=== PATIENT | female | born 1955 | race Caucasian/White ===

== ENCOUNTER 2017-09-16 22:52 | Emergency (ER) | payer OTHER ==
--- NOTE | 2017-09-16 23:00 | EDPHY ---
H & P Stated Complaint: r side neck pain headache Time Seen by Provider: 09/16/17 23:00 HPI/ROS: HPI CHIEF COMPLAINT: Neck pain times 10 days. HISTORY OF PRESENT ILLNESS: Patient is 62-year-old female, she is otherwise healthy, she is a nurse here and works in the OR, she presents emergency room with right lateral neck pain. Patient states that for the past 10 days she has had ongoing right neck pain. She states she was in [place] and she was carrying a very heavy Beach bag she remembers this Beach bag pulling very hard on her right shoulder causing some neck discomfort. Since that event 10 days ago she has had ongoing right lateral neck pain. She has had multiple massage his also she had a chiropractor neck manipulation done without any great relief infection states it got worse. She decided come the emergency room tonight due to ongoing right lateral neck pain as she cannot turn her head to the right without great pain. The pain does not go down her arm. She has no arm weakness she denies any numbness or tingling she denies ecological risk assessor strength weakness. Her main complaint is right lateral neck pain. Describes it as 10/10 when she moves her head to the right. Past Medical History: Denies medical history Past Surgical History: Denies significant surgical history Social History: Denies daily use of drugs alcohol tobacco. Works in the OR here. Family History: Noncontributory ROS REVIEW OF SYSTEMS: A comprehensive 10 point review of systems is otherwise negative aside from elements mentioned in the history of present illness. Exam Constitutional nontoxic appearing, vital signs stable triage nursing summary reviewed, vital signs reviewed, awake/alert. Eyes normal conjunctivae and sclera, EOMI, PERRLA. HENT neck exam: No carotid bruit on exam, she does have full range of motion of her head when she turns her head however when she turns her head to the right she has right lateral neck pain. Also has tender palpation, there is no swelling noted, no midline cervical spine pain. Additionally she has normal ecological risk assessor strength, normal sensation, x-ray nerve intact, full range of motion of the right arm. moist mucus membranes, no epistaxis, neck supple/ no meningismus , no raccoon eyes. Respiratory clear to auscultation bilaterally, normal breath sounds, no respiratory distress, no wheezing. Cardiovascular rate normal, regular rhythm, no murmur, no edema, distal pulses normal. Gastrointestinal soft, non-tender, no rebound, no guarding, normal bowel sounds, no distension, no pulsatile mass. Genitourinary no CVA tenderness. Musculoskeletal no midline vertebral tenderness, full range of motion, no calf swelling, no tenderness of extremities, no meningismus, good pulses, neurovascularly intact. Skin pink, warm, & dry, no rash, skin atraumatic. Neurologic awake, alert and oriented x 3, AAOx3, moves all 4 extremities equally, motor intact, sensory intact, CN II-XII intact, normal cerebellar, normal vision, normal speech. Psychiatric normal mood/affect. Heme/Lymph/Immune no lymphadenopathy. Differential Diagnosis: Includes but is not limited to in a particular order cervical strain, disc herniation, nerve root compression, annular tear, fracture , neuropathy, musculoskeletal strain, vertebral artery dissection Medical Decision Making: Plan for this patient CT scan cervical spine without contrast for trauma, CT angiogram neck to rule out carotid dissection. Re- evaluate. Re-evaluation: CT cervical spine without contrast shows severe her foraminal stenosis on the right C3-C4 C5 and osteophytes. Please see full dictation for details of the report by . CT angiogram of the neck: With IV contrast shows no dissection artery. Please see full dictation for details. Dr. Rod. [id number]: Discussed the case in detail with the patient about her CT results. I do recommend she has follow-up with Neurosurgery and additionally recommend following up with primary care doctor as well. Here in emergency room she got minimal relief from the Dilaudid and Valium. She has agreed for IV Toradol, IV Decadron and another dose of Dilaudid to see if this improves her pain. Source: Patient - Personal History Current Tetanus/Diphtheria Vaccine: Yes Current Tetanus Diphtheria and Acellular Pertussis (TDAP): Yes - Medical/Surgical History Hx Asthma: No Hx Chronic Respiratory Disease: No Hx Diabetes: No Hx Cardiac Disease: Yes Hx Renal Disease: No Hx Cirrhosis: No Hx Alcoholism: No Hx HIV/AIDS: No Hx Splenectomy or Spleen Trauma: No Other PMH: c-sec x3 - Social History Smoking Status: Never smoked Constitutional: Initial Vital Signs Temperature (C) 36.5 C 09/16/17 22:54 Heart Rate 77 09/16/17 22:54 Respiratory Rate 18 09/16/17 22:54 Blood Pressure 161/95 H 07/01/18 22:54 O2 Sat (%) 97 09/16/17 22:54 O2 Delivery Mode Room Air Allergies/Adverse Reactions: Sulfa (Sulfonamide Antibiotics) Allergy (Verified 05/03/13 12:00) RASH AND JAW "LOCKS UP" Home Medications: Medication Instructions Recorded ESTROGEN,CON/M-PROGEST ACET 04/16/11 [PREMPRO 0.3 MG-1.5 MG TABLET] Diazepam [Valium 5 MG (*)] 5 mg PO BID PRN #15 tab 09/17/17 Ibuprofen [Motrin (*)] 800 mg PO Q6-8PRN #20 tab 09/17/17 predniSONE 60 mg PO DAILY #15 tab 09/17/17 Medical Decision Making - Diagnostics Imaging Results: Imaging Impressions Cervical Spine CT 09/16/17 23:13 Impression: Normal CT angiography of the neck and of the [place]. Measurement of carotid stenosis is based on the residual internal carotid diameter with [place] Symptomatic Carotid Endarterectomy Trial (NASCET) based stenosis levels. Contrast Enhanced CT Scan of the Cervical Spine: Imaging of the cervical spine was obtained from the craniocervical junction to the T5 level, reformatted at 1.00 and 0.60 mm increments, and reviewed in parasagittal and paracoronal planes , at a variety of window and level settings. The DFOV is 20.3 cm. Findings: The cervical vertebral body heights and posterior alignments are maintained. There is a slight head tilt and trace cervical-thoracic junction curvature and also slight straightening of the normal cervical lordosis, features suggestive of underlying muscle spasm. The osseous trabecular pattern is normal, with no lytic or blastic lesion. There is no compression fracture. There is trace degenerative anterolisthesis at C2-C3. There is no facet malalignment, and the interspinous distances are appropriate. There is no unusual prevertebral or epidural enhancement. The lateral masses of C1 and C2 are aligned, and the base of the tip of the dens are normal. There is some mild osseous hypertrophy along the superior portion of the predental space. The craniocervical junction appears normal. The visualized upper cervical spine appears normal. There is no paravertebral or epidural hematoma. The prevertebral soft tissues are notable for a stable dominant heterogeneous- appearing 12 x 13 x 16 mm right thyroid lobe nodule, which previously measured 12 x 12 x 16 mm on 06/18/15, at which time it was biopsied. The lung apices are notable for a thin-walled 11 x 12 mm left apical pneumatocele. The visualized superior mediastinal structures are unremarkable. At the C2-C3 level, there is no focal disk herniation, canal stenosis, or neural foraminal impingement. At the C3-C4 level, there is the aforementioned trace degenerative anterolisthesis. There is severe right-sided facet hypertrophy with uncovertebral degenerative spondylosis, resulting in severe right neural foraminal stenosis. There is some very mild broad-based circumferential disk bulging, without significant central canal stenosis. The left neural foramen is patent. At the C4-C5 level, there is severe asymmetric right-sided facet hypertrophy with some uncovertebral degenerative spondylosis resulting in a mild-to- moderate degree of right neural foraminal stenosis. There is some minimal broad- based circumferential disk bulging. The left neural foramen is relatively patent. At the C5-C6 level, there is mild degenerative disk space narrowing. Ventral traction osteophytes are seen. There is some mild uncovertebral degenerative spondylosis, resulting in mild right neural foraminal narrowing. There is mild bilateral facet hypertrophy. There is no focal disk herniation or central canal stenosis. At the C6-C7 level, there is no central canal or neural foraminal stenosis. At the C7-T1 level, there is no central canal or neural foraminal stenosis. Impression: 1. Secondary indicator of underlying cervical muscle spasm. 2. Severe asymmetric right-sided facet degenerative change at C3-C4 and C4-C5 with some accompanying uncovertebral degenerative spondylosis resulting in severe right C3-C4, and [id number] right C4-C5 neural foraminal stenosis. 3. Stable appearance of a 12 x 13 x 16 mm right thyroid lobe nodule, which was previously biopsied with reportedly benign features in June 2015. Findings were discussed with Jorge Pereira MD at 0:29, on 09/17/2017. Neck CTA 09/16/17 23:13 Impression: Normal CT angiography of the neck and of the [place]. Measurement of carotid stenosis is based on the residual internal carotid diameter with [place] Symptomatic Carotid Endarterectomy Trial (NASCET) based stenosis levels. Contrast Enhanced CT Scan of the Cervical Spine: Imaging of the cervical spine was obtained from the craniocervical junction to the T5 level, reformatted at 1.00 and 0.60 mm increments, and reviewed in parasagittal and paracoronal planes , at a variety of window and level settings. The DFOV is 20.3 cm. Findings: The cervical vertebral body heights and posterior alignments are maintained. There is a slight head tilt and trace cervical-thoracic junction curvature and also slight straightening of the normal cervical lordosis, features suggestive of underlying muscle spasm. The osseous trabecular pattern is normal, with no lytic or blastic lesion. There is no compression fracture. There is trace degenerative anterolisthesis at C2-C3. There is no facet malalignment, and the interspinous distances are appropriate. There is no unusual prevertebral or epidural enhancement. The lateral masses of C1 and C2 are aligned, and the base of the tip of the dens are normal. There is some mild osseous hypertrophy along the superior portion of the predental space. The craniocervical junction appears normal. The visualized upper cervical spine appears normal. There is no paravertebral or epidural hematoma. The prevertebral soft tissues are notable for a stable dominant heterogeneous- appearing 12 x 13 x 16 mm right thyroid lobe nodule, which previously measured 12 x 12 x 16 mm on 06/18/15, at which time it was biopsied. The lung apices are notable for a thin-walled 11 x 12 mm left apical pneumatocele. The visualized superior mediastinal structures are unremarkable. At the C2-C3 level, there is no focal disk herniation, canal stenosis, or neural foraminal impingement. At the C3-C4 level, there is the aforementioned trace degenerative anterolisthesis. There is severe right-sided facet hypertrophy with uncovertebral degenerative spondylosis, resulting in severe right neural foraminal stenosis. There is some very mild broad-based circumferential disk bulging, without significant central canal stenosis. The left neural foramen is patent. At the C4-C5 level, there is severe asymmetric right-sided facet hypertrophy with some uncovertebral degenerative spondylosis resulting in a mild-to- moderate degree of right neural foraminal stenosis. There is some minimal broad- based circumferential disk bulging. The left neural foramen is relatively patent. At the C5-C6 level, there is mild degenerative disk space narrowing. Ventral traction osteophytes are seen. There is some mild uncovertebral degenerative spondylosis, resulting in mild right neural foraminal narrowing. There is mild bilateral facet hypertrophy. There is no focal disk herniation or central canal stenosis. At the C6-C7 level, there is no central canal or neural foraminal stenosis. At the C7-T1 level, there is no central canal or neural foraminal stenosis. Impression: 1. Secondary indicator of underlying cervical muscle spasm. 2. Severe asymmetric right-sided facet degenerative change at C3-C4 and C4-C5 with some accompanying uncovertebral degenerative spondylosis resulting in severe right C3-C4, and [id number] right C4-C5 neural foraminal stenosis. 3. Stable appearance of a 12 x 13 x 16 mm right thyroid lobe nodule, which was previously biopsied with reportedly benign features in June 2015. Findings were discussed with Jorge Pereira MD at 0:29, on 09/17/2017. - Data Points Laboratory Results: Laboratory Results 09/16/17 23:10 09/16/17 23:10 09/16/17 09/16/17 09/16/17 23:19 23:10 23:10 WBC 15.45 10^3/uL H 10^3/uL (3.80-9.50) RBC 4.60 10^6/uL 10^6/uL (4.18-5.33) Hgb 14.6 g/dL g/dL (12.6-16.3) POC Hgb 15.3 gm/dL gm/dL (12.6-16.3) Hct 42.9 % % (38.0-47.0) POC Hct 45 % % (38-47) MCV 93.3 fL fL (81.5-99.8) MCH 31.7 pg pg (27.9-34.1) MCHC 34.0 g/dL g/dL (32.4-36.7) RDW 12.3 % % (11.5-15.2) Plt Count 254 10^3/uL 10^3/uL (150-400) MPV 10.3 fL fL (8.7-11.7) Neut % (Auto) 71.8 % % (39.3-74.2) Lymph % (Auto) 19.0 % % (15.0-45.0) [place] % (Auto) 6.8 % % (4.5-13.0) Eos % (Auto) 1.4 % % (0.6-7.6) Baso % (Auto) 0.5 % % (0.3-1.7) Nucleat RBC Rel Count 0.0 % % (0.0-0.2) Absolute Neuts (auto) 11.12 10^3/uL H 10^3/uL (1.70-6.50) Absolute Lymphs (auto) 2.93 10^3/uL 10^3/uL (1.00-3.00) Absolute Monos (auto) 1.05 10^3/uL H 10^3/uL (0.30-0.80) Absolute Eos (auto) 0.21 10^3/uL 10^3/uL (0.03-0.40) Absolute Basos (auto) 0.07 10^3/uL 10^3/uL (0.02-0.10) Absolute Nucleated RBC 0.00 10^3/uL 10^3/uL (0-0.01) Immature Gran % 0.5 % % (0.0-1.1) Immature Gran # 0.07 10^3/uL 10^3/uL (0.00-0.10) POC Sodium 142 mEq/L mEq/L (135-145) Sodium 142 mEq/L mEq/L (135-145) POC Potassium 3.4 mEq/L mEq/L (3.3-5.0) Potassium 3.6 mEq/L mEq/L (3.3-5.0) POC Chloride 106 mEq/L mEq/L (97-110) Chloride 106 mEq/L mEq/L (97-110) Carbon Dioxide 25 mEq/l mEq/l (22-31) Anion Gap 11 mEq/L mEq/L (8-16) POC BUN 18 mg/dL mg/dL (7-23) BUN 18 mg/dL mg/dL (7-23) Creatinine 1.0 mg/dL mg/dL (0.6-1.0) POC Creatinine 1.0 mg/dL mg/dL (0.6-1.0) Estimated GFR 56 Glucose 88 mg/dL mg/dL (70-100) POC Glucose 92 mg/dL mg/dL (70-100) Calcium 10.3 mg/dL mg/dL (8.5-10.4) Medications Given: Discontinued Medications Diazepam (Valium) 2.5 mg IVP EDNOW ONE Stop: 09/16/17 23:15 Last Admin: 09/16/17 23:23 Dose: 2.5 mg Hydromorphone HCl (Dilaudid) 0.5 mg IVP EDNOW ONE Stop: 09/16/17 23:15 Last Admin: 09/16/17 23:22 Dose: 0.5 mg Sodium Chloride (Ns) 1,000 mls @ 0 mls/hr IV ONCE ONE PRN Reason: Wide Open Stop: 09/16/17 23:15 Last Admin: 09/16/17 23:22 Dose: 1,000 mls Ketorolac Tromethamine (Toradol) 15 mg IVP ONCE ONE Stop: 09/16/17 23:15 Last Admin: 09/16/17 23:39 Dose: Not Given Point of Care Test Results: Chemistry 09/16/17 23:19 POC Sodium 142 mEq/L mEq/L (135-145) POC Potassium 3.4 mEq/L mEq/L (3.3-5.0) POC Chloride 106 mEq/L mEq/L (97-110) POC BUN 18 mg/dL mg/dL (7-23) POC Creatinine 1.0 mg/dL mg/dL (0.6-1.0) POC Glucose 92 mg/dL mg/dL (70-100) ISTAT H&H 09/16/17 23:19 POC Hgb 15.3 gm/dL gm/dL (12.6-16.3) POC Hct 45 % % (38-47) Departure - Departure Disposition: Home, Routine, Self-Care Clinical Impression: Neck pain Condition: Good Instructions: Cervical Strain (ED), Neck Pain (ED) Additional Instructions: 1. Follow up with your primary care doctor 2. Follow up with Neurosurgery 3. Return emergency room if there is worsening pain numbness or tingling or weakness of her arm. Referrals: Kourtney Brown MD [Primary Care Provider] - As per Instructions Maciel Pepe MD [Medical Doctor] - As per Instructions Prescriptions: Diazepam [Valium 5 MG (*)] 5 mg PO BID PRN #15 tab PRN Reason: Spasms Ibuprofen [Motrin (*)] 800 mg PO Q6-8PRN #20 tab predniSONE 60 mg PO DAILY #15 tab
[2017-09-16] MEDS ORDERED: DIAZEPAM 5 MG/ML 1 ML SYR IVP ONE (23:14)
[2017-09-16] MEDS ORDERED: HYDROmorphONE/DILAUDID 2 MG/ML INJ IVP ONE (23:14)
[2017-09-16] MEDS ORDERED: KETOROLAC 15 MG/1 ML SDV IVP ONE (23:14)
[2017-09-16] MEDS ORDERED: NS 1,000 ML IV ONE (23:14)
[2017-09-16] MEDS ORDERED: IOPAMIDOL (ISOVUE 370) 100 ML BTL IV ONE (23:19)
[2017-09-16] MEDS ORDERED: HYDROmorphONE/DILAUDID 1 MG/ML INJ ONE (23:19)
[2017-09-16 23:20] LABS: PLATELET COUNT 254 10^3/uL (150-400)
[2017-09-17] MEDS ORDERED: KETOROLAC 15 MG/1 ML SDV IVP ONE (01:03)
[2017-09-17] MEDS ORDERED: DEXAMETHASONE 10 MG/ML VIAL IVP ONE (01:03)
[2017-09-17] MEDS ORDERED: HYDROmorphONE/DILAUDID 2 MG/ML INJ IVP ONE (01:03)
[2017-09-17] MEDS ORDERED: HYDROmorphONE/DILAUDID 1 MG/ML INJ ONE (01:06)
[2017-09-17] MEDS ORDERED: NS 1,000 ML IV ONE (02:13)
[2017-09-17] MEDS ORDERED: PROMETHAZINE HCL 25 MG/ML INJ IVP ONE (02:13)
[2017-09-17] MEDS ORDERED: ONDANSETRON 4 MG/2 ML VIAL IVP ONE (03:20)
[2017-09-17] MEDS ORDERED: ONDANSETRON 4MG PREPACK#2 BTL TAKEHOME ONE (03:53)
[2017-09-17 04:16] VITALS: BP 121/74
== END 2017-09-17 04:16 | disposition home or self-care (01) ==
DX: M54.2 Cervicalgia (principal)
CPT/HCPCS: 82435-PO; 82565-PO; 82947-PO; 84132-PO; 84295-PO; 84520-PO; 85014-PO; 96374; J1100; J1170; J1885; J2405; J2550; J3360; Q9967

== ENCOUNTER 2017-09-18 10:17 | Observation (INO) | payer OTHER ==
--- NOTE | 2017-09-18 10:32 | CPEKG ---
Heart Rate: 129 RR Interval: 465 QRSD Interval: 70 QT Interval: 288 QTC Interval: 422 QRS [place]: 7 T Wave [place]: 119 EKG Severity - ABNORMAL ECG - EKG Impression: ATRIAL FIBRILLATION EKG Impression: BORDERLINE REPOL ABNORMALITY, ANT-LAT LEADS Electronically Signed By: Ryne Nichols 19-Sep-2017 07:45:15
[2017-09-18] MEDS ORDERED: DILTIAZEM 125 MG in D5W 125 ML IV ONE (10:45)
[2017-09-18] MEDS ORDERED: DILTIAZEM 25 MG/5 ML VIAL IVP ONE ×2 (10:47→10:49)
--- NOTE | 2017-09-18 10:49 | EDPHY ---
H & P Time Seen by Provider: 09/18/17 10:20 HPI/ROS: CHIEF COMPLAINT: Tachycardia HISTORY OF PRESENT ILLNESS: 62-year-old female presents to the emergency department with what she thought was SVT. She states that she felt fine this morning and she was in a meeting at 8:30 a.m. This morning all the sudden she felt tachycardic. She has a history of SVT for last 30+ years. She is usually able to control this with Valsalva. She tried carotid massage without relief. She denies pain in her chest or difficulty breathing. Denies abdominal pain. She was seen in the emergency department 2 days ago and was diagnosed with stenosis in her cervical spine. She was given IV Decadron as well as oral prednisone. She has taken 60 mg of prednisone the last 2 days. Denies headache. Denies abdominal pain or vomiting. REVIEW OF SYSTEMS: Constitutional: No fever, no chills. Eyes: No double or blurry vision. ENT: No sore throat. Respiratory: No cough, no shortness of breath. Cardiac: No chest pain. Gastrointestinal: No abdominal pain, vomiting or diarrhea. Genitourinary: No dysuria. Musculoskeletal: No neck or back pain. Skin: No rashes. Neurological: No headache. 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 Eyes: Pupils equal and round. Extraocular motions are all intact. ENT: Mouth: Mucous membranes moist. Respiratory: No wheezing, rhonchi, or rales, lungs are clear to auscultation. Cardiovascular: No murmur. Tachycardic, irregularly irregular Gastrointestinal: Abdomen is soft and nontender, no masses, no rebound or guarding, bowel sounds normal. Neurological: Alert and oriented x 3, cranial nerves II through XII grossly intact Skin: Warm and dry, no rashes. Musculoskeletal: Nontender to palpate along the cervical, thoracic or lumbar spine. Neck is supple. Extremities: Full range of motion and no peripheral edema. Psychiatric: Patient is oriented X 3, there is no agitation. Constitutional: Initial Vital Signs Heart Rate 145 H 09/18/17 10:19 Respiratory Rate 18 09/18/17 10:19 Blood Pressure 148/102 H 09/18/17 10:19 O2 Sat (%) 95 07/03/18 10:19 O2 Delivery Mode Room Air Allergies/Adverse Reactions: Sulfa (Sulfonamide Antibiotics) Allergy (Verified 05/03/13 12:00) RASH AND JAW "LOCKS UP" Home Medications: Medication Instructions Recorded ESTROGEN,CON/M-PROGEST ACET 1 each PO DAILY 04/16/11 [PREMPRO 0.3 MG-1.5 MG TABLET] predniSONE 60 mg PO DAILY #15 tab 09/17/17 valACYclovir [Valtrex (*)] 500 mg PO BID PRN 09/18/17 Medical Decision Making - Diagnostics Imaging Results: Imaging Impressions Chest X-Ray 09/18/17 10:41 Impression: Normal. No evidence for failure. Imaging: I viewed and interpreted images myself ED Course/Re-evaluation: 62-year-old female presents to the emergency department feeling tachycardic. On examination the patient has an irregularly irregular rhythm. She is tachycardic. EKG was obtained which confirms atrial fibrillation. The case was discussed with Dr. Choi, secondary supervising physician, who also evaluated the patient. The patient will be started on cardiac exam IV in the emergency department as well as Cardizem drip. I spoke with the on-call president trust company, Dr. Ab Hernadez , for consultation. She will be admitted to PCU to Dr. Rafal Samson for new onset atrial fibrillation. Differential Diagnosis: Including but not limited to atrial fibrillation, SVT, arrhythmia, electrolyte abnormality, myocardial infarction, congestive heart failure - Data Points Laboratory Results: Laboratory Results 09/18/17 10:35 09/18/17 10:35 09/18/17 09/18/17 09/18/17 10:35 10:35 10:35 WBC 22.63 10^3/uL H 10^3/uL (3.80-9.50) RBC 4.29 10^6/uL 10^6/uL (4.18-5.33) Hgb 13.7 g/dL g/dL (12.6-16.3) Hct 40.1 % % (38.0-47.0) MCV 93.5 fL fL (81.5-99.8) MCH 31.9 pg pg (27.9-34.1) MCHC 34.2 g/dL g/dL (32.4-36.7) RDW 12.6 % % (11.5-15.2) Plt Count 243 10^3/uL 10^3/uL (150-400) MPV 10.9 fL fL (8.7-11.7) Neut % (Auto) Not Reported Lymph % (Auto) Not Reported [place] % (Auto) Not Reported Eos % (Auto) Not Reported Baso % (Auto) Not Reported Nucleat RBC Rel Count Not Reported Absolute Neuts (auto) Not Reported Absolute Lymphs (auto) Not Reported Absolute Monos (auto) Not Reported Absolute Eos (auto) Not Reported Absolute Basos (auto) Not Reported Absolute Nucleated RBC Not Reported Immature Gran % Not Reported Seg Neutrophils % 94.0 % % Band Neutrophils % 0 % % Lymphocytes % 6.0 % % Monocytes % 0 % % Eosinophils % 0 % % Basophils % 0 % % Metamyelocytes % 0 % % Myelocytes % 0 % % Promyelocytes % 0 % % Blast Cells % 0 % % Immature Gran # Not Reported Absolute Seg Neuts 21.27 10^/uL H 10^/uL (1.70-6.50) Absolute Band Neuts 0.00 10^3/uL 10^3/uL (0.00-0.70) Absolute Lymphocytes 1.36 10^3/uL 10^3/uL (1.00-3.00) Absolute Monocytes 0.00 10^3/uL L 10^3/uL (0.30-0.80) Absolute Eosinophils 0.00 10^3/uL L 10^3/uL (0.03-0.40) Absolute Basophils 0.00 10^3/uL L 10^3/uL (0.02-0.10) Absolute Metamyelocyte 0.00 10^3/mL 10^3/mL (0.00-0.00) Absolute Myelocytes 0.00 10^3/mL 10^3/mL (0.00-0.00) Absolute Promyelocytes 0.00 10^3/uL 10^3/uL (0.00-0.00) Absolute Plasma Cells 0.00 10^3/uL 10^3/uL (0.00-0.00) Absolute Blast Cells 0.00 10^3/uL 10^3/uL (0.00-0.00) Plasma Cells % 0 % % Platelet Estimate ADEQUATE (ADEQ) Oval Macrocytes 1+ H Sodium 142 mEq/L mEq/L (135-145) Potassium 4.2 mEq/L mEq/L (3.3-5.0) Chloride 109 mEq/L mEq/L (97-110) Carbon Dioxide 23 mEq/l mEq/l (22-31) Anion Gap 10 mEq/L mEq/L (8-16) BUN 15 mg/dL mg/dL (7-23) Creatinine 0.7 mg/dL mg/dL (0.6-1.0) Estimated GFR > 60 Glucose 123 mg/dL H mg/dL (70-100) Calcium 10.7 mg/dL H mg/dL (8.5-10.4) Phosphorus 1.9 mg/dL L mg/dL (2.5-4.5) Troponin I < 0.012 ng/mL ng/mL (0.000-0.034) TSH 0.535 uIU/mL uIU/mL (0.465-4.680) PTH Intact 43.9 pg/mL pg/mL (10.8-79.4) Medications Given: Discontinued Medications Diltiazem HCl (Cardizem 25 Mg/5 Ml Vial) 10 mg IVP EDNOW ONE Stop: 09/18/17 10:50 Last Admin: 09/18/17 10:49 Dose: 10 mg Diltiazem HCl 125 mg/ Dextrose 125 mls @ 0 mls/hr IV EDNOW ONE; As Directed PRN Reason: Protocol Stop: 09/18/17 10:46 Last Admin: 09/18/17 10:58 Dose: 125 mls Sodium Chloride (Ns) 1,000 mls @ 250 mls/hr IV ONCE ONE Stop: 09/18/17 16:34 Last Admin: 09/18/17 13:46 Dose: Not Given Departure - Departure Disposition: [facility] Clinical Impression: Atrial fibrillation Qualifiers: Atrial fibrillation type: unspecified Qualified Code(s): I48.91 - Unspecified atrial fibrillation Condition: Good
[2017-09-18 10:53] LABS: PLATELET COUNT 243 10^3/uL (150-400)
--- NOTE | 2017-09-18 11:25 | PDCARCONS ---
Cardiology Consult Reason for Consult: Atrial fibrillation. Chief Complaint: Palpitations. Requesting Physician: Dr. Viv Hinson. History of Present Illness: 62-year-old female who has a history of SVT previously evaluated in our practice by Dr. Jayce Vaca seen in the emergency department with new onset atrial fibrillation. She has been offered ablation in the past for her SVT however has declined. She states that she gets about 8 episodes per year. Universally these resolve with a quick Valsalva. Rarely, she needs to come to the emergency department and received intravenous medications to break this arrhythmia. Usually, she has been administered beta-blockers in the past. She has refused adenosine previously. She states that she was seen in the emergency department and treated about 4 months ago. There are no records in our system of that visit. Earlier today she was at an infection control meeting. She states that she developed her usual symptoms of SVT at that time. She had a very rapid heart rate at that time and performed her usual Valsalva. She felt her heart rate slowed down at which point he rapidly became irregular. She thinks that this is the 1st time that she has had an irregular heartbeat. She had no associated symptoms of shortness of breath, nausea, vomiting or diaphoresis. She also denies dizziness and lightheadedness. Because of the symptoms she came to the emergency department where she was noted to be in atrial fibrillation with a rapid ventricular response. The rate on her initial ECG was 129 beats per minute. She was given intravenous diltiazem and started on a drip with an improvement in her heart rate. She notes that this is the 1st time that she has had atrial fibrillation. She has never had a stroke. Her chads Vasc score is 1 (female gender). She has never been on systemic anticoagulation in the past. Yesterday, she had an MRI of her cervical spine. She was told that she had significant cervical spine stenosis. She was administered intravenous Decadron and was started on prednisone. She took 60 mg last night and 60 mg this morning. This has resulted in improvement in her symptoms of neck pain. History Information - Allergies/Home Medication List Allergies/Adverse Reactions: Sulfa (Sulfonamide Antibiotics) Allergy (Verified 05/03/13 12:00) RASH AND JAW "LOCKS UP" Home Medications: ESTROGEN,CON/M-PROGEST ACET [PREMPRO 0.3 MG-1.5 MG TABLET] 1 each PO DAILY 04/16 [Last Taken 2 Days Ago ~09/16/17] valACYclovir [Valtrex (*)] 500 mg PO BID PRN 09/18/17 [Last Taken Unknown] I have personally reviewed and updated: family history, medical history, social history, surgical history Past Medical History: Supraventricular tachycardia offered ablation in the past. Cervical spine stenosis. - Surgical History Additional surgical history: section x3. - Family History Additional family history: No family history of cardiovascular disease. 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 She exercises regularly. Age in Years: < 65 Sex: Female Congestive Heart Failure History: No Hypertension History: No Stroke/TIA/Thromboembolism History: No Vascular Disease History: No Diabetes Mellitus: No [id number] Score: 1 Physical Exam Physical Exam: Temp Pulse Resp BP Pulse Ox 120 H 16 123/83 H 95 09/18/17 11:00 09/18/17 11:00 09/18/17 11:00 09/18/17 11:00 Constitutional: no apparent distress, appears nourished, not in pain Eyes: PERRL, anicteric sclera, EOMI Ears, Nose, Mouth, Throat: moist mucous membranes, hearing normal, ears appear normal, no oral mucosal ulcers Cardiovascular: regular rate and rhythym, no murmur, rub, or gallop, irregularly irregular, No JVD, No edema Respiratory: no respiratory distress, no rales or rhonchi, clear to auscultation Gastrointestinal: normoactive bowel sounds, soft, non-tender abdomen, no palpable masses Genitourinary: no bladder fullness, no bladder tenderness Skin: warm, normal color, no rashes or abrasions, no fluctuance, no induration, No mottled Musculoskeletal: full muscle strength, no muscle tenderness, normal joint ROM, no joint effusions Psychiatric: interacting appropriately, not anxious, not encephalopathic, thought process linear Lymph, Heme, Immunologic: no cervical LAD, no supraclavicular LAD Lab and Imaging 09/18/17 10:35 09/18/17 10:35 WBC 22.63 10^3/uL (3.80-9.50) H 09/18/17 10:35 RBC 4.29 10^6/uL (4.18-5.33) 09/18/17 10:35 Hgb 13.7 g/dL (12.6-16.3) 09/18/17 10:35 Hct 40.1 % (38.0-47.0) 09/18/17 10:35 MCV 93.5 fL (81.5-99.8) 09/18/17 10:35 MCH 31.9 pg (27.9-34.1) 09/18/17 10:35 MCHC 34.2 g/dL (32.4-36.7) 09/18/17 10:35 RDW 12.6 % (11.5-15.2) 09/18/17 10:35 Plt Count 243 10^3/uL (150-400) 09/18/17 10:35 MPV 10.9 fL (8.7-11.7) 09/18/17 10:35 A/P Assessment: 62-year-old female who has a longstanding history of SVT typically managed with Valsalva techniques. She has been offered ablation in the past however has refused. Earlier today she developed symptoms of palpitations typical for her SVT she noted that her heart rate was irregular. On arrival to the emergency department she was found to be in rapid atrial fibrillation. She has very minor symptoms of palpitations. Her chads Vasc score is 1. Following the administration of intravenous diltiazem her heart rate is under better control. She has no history of structural heart disease that is known at the present time. Interestingly, she received intravenous Decadron and was started on prednisone yesterday. It is possible that these medications have contributed to the development of this arrhythmia. Plan: 1. She and I discussed various treatment options. She was offered DELFINA and cardioversion however she declined preferring to receive intravenous diltiazem and wait to see if her arrhythmia resolves spontaneously. 2. We also discussed the high likelihood that her SVT deteriorated into atrial fibrillation. I recommended that she reconsider the option of SVT ablation. 3. She will be admitted to the telemetry unit, continued on intravenous diltiazem and monitored. 4. I will order a TSH and an echocardiogram. I would like to wait to have the echocardiogram until after she reverts to sinus rhythm. 5. I do not think that she requires systemic anticoagulation at the present time. 6. Consideration could be given to chronic, long-term outpatient therapy with oral diltiazem if she would be amenable to that as an alternative to an ablation for her SVT. 7. We will follow along with you. Review of Systems Review of Systems: - Review of Systems Constitutional: no symptoms reported EENTM: no symptoms reported Respiratory: no symptoms reported Cardiac: palpitations Gastrointestinal/Abdominal: no symptoms reported Genitourinary: no symptoms Musculoskelatal: neck pain Skin: no symptoms Neurological: no symptoms Hematologic/Lymphatic: no symptoms reported Immunologic/allergic: no symptoms reported All Other Systems: Reviewed and Negative
[2017-09-18] MEDS ORDERED: K PHOS 10 MMOL in D5W 250 ML IV ONE ×2 (12:00→17:15)
[2017-09-18] MEDS ORDERED: oxyCODONE IR 5 MG TAB PO PRN (12:35)
[2017-09-18] MEDS ORDERED: NS 1,000 ML IV ONE (12:35)
[2017-09-18] MEDS ORDERED: ONDANSETRON 4 MG/2 ML VIAL IVP PRN (12:35)
[2017-09-18] MEDS ORDERED: ACETAMINOPHEN 325 MG TAB PO PRN (12:35)
[2017-09-18] MEDS ORDERED: ONDANSETRON DISINTEGRATING 4 MG TAB PO PRN (12:35)
[2017-09-18] MEDS ORDERED: valACYclovir 500 MG TAB PO PRN (12:37)
--- NOTE | 2017-09-18 12:38 | PDGENHP ---
History and Physical - History of Present Illness History Information - Allergies/Home Medication List Allergies/Adverse Reactions: Sulfa (Sulfonamide Antibiotics) Allergy (Verified 05/03/13 12:00) RASH AND JAW "LOCKS UP" Home Medications: ESTROGEN,CON/M-PROGEST ACET [PREMPRO 0.3 MG-1.5 MG TABLET] 1 each PO DAILY 04/16 [Last Taken 2 Days Ago ~09/16/17] valACYclovir [Valtrex (*)] 500 mg PO BID PRN 09/18/17 [Last Taken Unknown] - Surgical History Additional surgical history: section x3. - Family History Additional family history: No family history of cardiovascular disease. 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 She exercises regularly. Review of Systems Review of Systems: Physical Exam Physical Exam: Temp Pulse Resp BP Pulse Ox 102 H 18 126/89 H 95 09/18/17 12:10 09/18/17 12:10 09/18/17 12:10 09/18/17 12:10 Lab Data & Imaging Review 09/18/17 10:35 09/18/17 10:35 WBC 22.63 10^3/uL (3.80-9.50) H 09/18/17 10:35 RBC 4.29 10^6/uL (4.18-5.33) 09/18/17 10:35 Hgb 13.7 g/dL (12.6-16.3) 09/18/17 10:35 Hct 40.1 % (38.0-47.0) 09/18/17 10:35 MCV 93.5 fL (81.5-99.8) 09/18/17 10:35 MCH 31.9 pg (27.9-34.1) 09/18/17 10:35 MCHC 34.2 g/dL (32.4-36.7) 09/18/17 10:35 RDW 12.6 % (11.5-15.2) 09/18/17 10:35 Plt Count 243 10^3/uL (150-400) 09/18/17 10:35 MPV 10.9 fL (8.7-11.7) 09/18/17 10:35 Neut % (Auto) Not Reported 09/18/17 10:35 Lymph % (Auto) Not Reported 09/18/17 10:35 [place] % (Auto) Not Reported 09/18/17 10:35 Eos % (Auto) Not Reported 09/18/17 10:35 Baso % (Auto) Not Reported 09/18/17 10:35 Nucleat RBC Rel Count Not Reported 09/18/17 10:35 Absolute Neuts (auto) Not Reported 09/18/17 10:35 Absolute Lymphs (auto) Not Reported 09/18/17 10:35 Absolute Monos (auto) Not Reported 09/18/17 10:35 Absolute Eos (auto) Not Reported 09/18/17 10:35 Absolute Basos (auto) Not Reported 09/18/17 10:35 Absolute Nucleated RBC Not Reported 09/18/17 10:35 Immature Gran % Not Reported 09/18/17 10:35 Seg Neutrophils % 94.0 % 09/18/17 10:35 Band Neutrophils % 0 % 09/18/17 10:35 Lymphocytes % 6.0 % 09/18/17 10:35 Monocytes % 0 % 09/18/17 10:35 Eosinophils % 0 % 09/18/17 10:35 Basophils % 0 % 09/18/17 10:35 Metamyelocytes % 0 % 09/18/17 10:35 Myelocytes % 0 % 09/18/17 10:35 Promyelocytes % 0 % 09/18/17 10:35 Blast Cells % 0 % 09/18/17 10:35 Immature Gran # Not Reported 09/18/17 10:35 Absolute Seg Neuts 21.27 10^/uL (1.70-6.50) H 09/18/17 10:35 Absolute Band Neuts 0.00 10^3/uL (0.00-0.70) 09/18/17 10:35 Absolute Lymphocytes 1.36 10^3/uL (1.00-3.00) 09/18/17 10:35 Absolute Monocytes 0.00 10^3/uL (0.30-0.80) L 09/18/17 10:35 Absolute Eosinophils 0.00 10^3/uL (0.03-0.40) L 09/18/17 10:35 Absolute Basophils 0.00 10^3/uL (0.02-0.10) L 09/18/17 10:35 Absolute Metamyelocyte 0.00 10^3/mL (0.00-0.00) 09/18/17 10:35 Absolute Myelocytes 0.00 10^3/mL (0.00-0.00) 09/18/17 10:35 Absolute Promyelocytes 0.00 10^3/uL (0.00-0.00) 09/18/17 10:35 Absolute Plasma Cells 0.00 10^3/uL (0.00-0.00) 09/18/17 10:35 Absolute Blast Cells 0.00 10^3/uL (0.00-0.00) 09/18/17 10:35 Plasma Cells % 0 % 09/18/17 10:35 Platelet Estimate ADEQUATE (ADEQ) 09/18/17 10:35 Oval Macrocytes 1+ H 09/18/17 10:35 Sodium 142 mEq/L (135-145) 09/18/17 10:35 Potassium 4.2 mEq/L (3.3-5.0) 09/18/17 10:35 Chloride 109 mEq/L (97-110) 09/18/17 10:35 Carbon Dioxide 23 mEq/l (22-31) 09/18/17 10:35 Anion Gap 10 mEq/L (8-16) 09/18/17 10:35 BUN 15 mg/dL (7-23) 09/18/17 10:35 Creatinine 0.7 mg/dL (0.6-1.0) 09/18/17 10:35 Estimated GFR > 60 09/18/17 10:35 Glucose 123 mg/dL (70-100) H 09/18/17 10:35 Calcium 10.7 mg/dL (8.5-10.4) H 09/18/17 10:35 Phosphorus 1.9 mg/dL (2.5-4.5) L 09/18/17 10:35 Troponin I < 0.012 ng/mL (0.000-0.034) 09/18/17 10:35 Assessment & Plan Assessment: Atrial fibrillation (Acute)
[2017-09-18] MEDS ORDERED: DILTIAZEM 125 MG in D5W 125 ML IV SCH (12:45)
--- NOTE | 2017-09-18 14:27 | ECHO ---
[email or web address] [address] Main: [phone] Fax: [email or web address] Echocardiogram Name: EDIE SHOEMAKER MR#: [id number] Study Date: 09/18/2017 Study Time: 12:15 PM Date of : 1955 Age: 62 year(s) Height: 167.6 cm (66 in.) Weight: 60.33 kg (133 lb.) BSA: 1.68 m2 Gender: Female Examination: Echo Indication: Atrial Fib Image Quality: Contrast: Requested by: Ab Hernadez BP: 126 mmHg/89 mmHg Heart Rate: Rhythm: Atrial fibrillation Indication: Atrial Fib Procedure Staff Water Use Inspector: Hitesh Mercer RDCS Reading Physician: Ab Hernadez MD Requesting Provider: Conclusions: Normal size left ventricle. Normal global systolic LV function. EF is 73 %. No regional wall motion abnormality. The rhythm is atrial fibrillation. . Trivial to mild tricuspid valve regurgitation. There are no significant valvular abnormalities. Measurements: Chambers Valvular Assessment AV/MV Valvular Assessment TV/PV Normal Normal Normal Name Value Range Name Value Range Name Value Range IVSd (2D): 0.6 cm (0.6 cm-1.1 AV Vmax: 1.17 m/s (1 m/s-1.7 TR Vmax: 2.46 mm/s ( - ) cm) m/s) TR PGmax: 24 mmHg ( - ) LVDd (2D): 3.4 cm (3.9 cm-5.3 AV maxP mmHg ( - ) syst. PAP: 29 mmHg ( - ) cm) LVOT Vmax: 0.88 m/s (0.7 m/s-1.1 PV Vmax: 0.90 m/s (0.6 m/s-0.9 LVDs (2D): 2.0 cm (2.1 cm-4 m/s) m/s) cm) MV E Vmax: 1.15 m/s ( - ) PV PGmax: 3 mmHg ( - ) LVPWd (2D): 0.9 cm ( - ) LVEF (2D): 73 (>=54 %) Continued Measurements: Chambers Valvular Assessment AV/MV Valvular Assessment TV/PV Name Value Name Value Name Value LADs Lon.4 cm MV E/E' Septal: 13.60 CVP (est.): 5 mmHg LA Area: 13.3 cm2 MV E/E' Lateral: 9.70 LA Volume: 32 ml LA Volume Index: 19.0 ml/m2 Patient: EDIE SHOEMAKER Study Date: 09/18/2017 Page 1 of 2 12:15 PM Findings: Left Ventricle: Normal size left ventricle. No LV hypertrophy. Normal global systolic LV function. EF is 73 %. No regional wall motion abnormality. Diastolic dysfunction is present. . The rhythm is atrial fibrillation. . Right Ventricle: Normal size right ventricle. Left Atrium: The left atrium is normal in size. Right Atrium: The right atrium is normal in size. Mitral Valve: The mitral valve is normal in appearance and function. Aortic Valve: The aortic valve is normal in appearance and function. Tricuspid Valve: The tricuspid valve is normal in appearance and function. Trivial to mild tricuspid valve regurgitation. Pulmonic Valve: The pulmonic valve is normal in appearance and function. Aorta: The aorta is normal. Pericardium: No pericardial effusion. (No Signature Object) Patient: EDIE SHOEMAKER Study Date: 09/18/2017 Page 2 of 2 12:15 PM [id number]
[2017-09-18] MEDS ORDERED: PROTOCOL K PHOSPHATE 1 DOSE IV PRN (16:25)
--- NOTE | 2017-09-18 17:03 | GHP ---
[f rep st] HISTORY AND PHYSICAL DATE OF ADMISSION: 09/18/2017 CHIEF COMPLAINT: Heart palpitations. HISTORY: This is a 62-year-old female, who has a past medical history of SVT that has been present f or about 30 years. She notes she was in a meeting this morning, when she initially noted being in SV T, which is a very distinct sensation for her. She Valsalva'd, then it seemed to improve; however, s hortly after that, she felt as if her heart were "flopping." She had a feeling that she was in atria l fibrillation and, at that point, decided to come to the emergency department for further evaluation . She notes that other than that, she recently had some issues with neck pain that was found to be s econdary to cervical stenosis, for which she was treated in the emergency department. She was given multiple pain medications and also started on a prednisone burst. Since being started on prednisone, she has had significantly increased swelling in her bilateral lower extremities. Her neck pain has completely resolved at this point. PAST MEDICAL HISTORY: 1. SVT. 2. Cervical spine stenosis. PAST SURGICAL HISTORY: section x3. SOCIAL HISTORY: Patient is a never smoker. She drinks alcohol occasionally. She denies drug use. 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 She has 3 children and is . FAMILY HISTORY: Negative for heart disease. REVIEW OF SYSTEMS: 10-point review of systems obtained, negative except as per HPI. HOME MEDICATIONS: 1. Valtrex. 2. Estrogen/progesterone. 3. Prednisone. ALLERGIES: Sulfa. PHYSICAL EXAM: VITAL SIGNS: BP 112/59, heart rate 69, respiratory rate 18, O2 sats 94% on room air. Temperature is 36.4. GENERAL APPEARANCE: This is a well-developed/well-nourished female. She is awake and alert. She is in no acute distress. EYES: Anicteric. HENT: Oropharynx clear. CARDIOVA SCULAR: Irregularly irregular rate in the low 100s. PULMONARY: CTA bilaterally. EXTREMITIES: Pit ting edema around the ankles. SKIN: Warm, dry, well perfused. NEURO/PSYCH: Oriented appropriate, pleasant. CLINICAL DATA: EKG, personally reviewed and interpreted, shows atrial fibrillation with rapid ventri cular response. Chest x-ray, personally reviewed and interpreted, is normal. LABORATORY STUDIES: Significant for white blood cell count of 22.63. Troponin was negative. Phos i s 1.9 with a normal PTH. ASSESSMENT/PLAN: This is a 62-year-old female with a past medical history of supraventricular tachyc ardia, presenting with atrial fibrillation with rapid ventricular response. 1. Atrial fibrillation with rapid ventricular response. Per Dr. Hernadez, this likely represents progr ession of her supraventricular tachycardia deteriorating into atrial fibrillation. She has discussed the option of ablation with Cardiology. Does not want to do that at this time. She has been starte d on intravenous diltiazem, with rate improving. Echocardiogram performed showing normal global syst olic function. No regional wall motion abnormalities and no significant valvular abnormalities. TSH is normal at 0.53. Uncertain if this could be related to the patient having taken a very high stero id dosage, receiving Decadron in the emergency room, and then being started on 60 mg of oral predniso ne. The plan will be to watch on the diltiazem drip and consider DELFINA cardioversion in the morning if she is not improving. 2. Hypophosphatemia, somewhat unusual, and the patient has a phosphorus of 1.9 without clear reason to have that. She has never had her phos checked in the past in our system. PTH was ordered and is normal at 43.9. Calcium slightly elevated at 10.7. We will add vitamin D and recheck in the morning . She likely should have a 24-hour urine phos collection, but this could be deferred to the outpatie nt setting when she is eating a normal diet, etc. 3. Leukocytosis. Was high 2 days ago and even higher now at 22,000. This is in the setting of ster oid usage but, again, was elevated even prior to receiving steroids. She does not have any signs or symptoms to suggest acute infectious process. We will recheck in the a.m. 4. Hyperglycemia. Again, suspect this is a stress response in the setting of steroid use. We will recheck a BMP in the morning. 5. Cervical stenosis. Patient no longer having any neck pain after receiving several days of predni sone. We will have her discontinue the prednisone given her edema and other concerns. She does have followup arranged with Dr. Pepe of Neurosurgery for ongoing management. 6. Disposition. Observation status. Suspect she will need a eqae-inem-65-hours stay for evaluation and management of above. 7. Patient is new to my care. Old records reviewed, summarized as per HPI and past medical history. Care plan reviewed with emergency room physician, including plans for Cardiology consultation. /[id number]/MODL
[2017-09-19 03:58] LABS: PLATELET COUNT 209 10^3/uL (150-400)
[2017-09-19 07:38] VITALS: BP 109/65
--- NOTE | 2017-09-19 08:37 | SOAPPROG ---
[facility] Progress Note Assessment/Plan: Assessment: She has a history of supraventricular tachycardia managed over the years with the p.r.n. use of Valsalva techniques. She presents now with her 1st episode of atrial fibrillation. This is noted in the setting of significant steroid use which was started given her history of cervical spine stenosis. Today she appears to be back in sinus rhythm. She and I have had multiple conversations regarding her arrhythmias. Historically, she has been offered ablation for her SVT as well as medical therapy. She has declined both of these options previously. Plan: 1. At the present time I think she can be discharged home. 2. I do not think that she requires long-term systemic anticoagulation given the fact that she has a chads Vasc score of 1. 3. I would recommend that she start daily diltiazem extended release 120 mg. She can take this pending an outpatient visit with electrophysiology to consider ablation for her SVT which I think is the culprit in initiating her atrial fibrillation. 4. We will sign off for now. 09/19/17 08:35 Subjective: She is doing well today. She reverted to sinus rhythm about 4:00 p.m. Yesterday and has remained in sinus rhythm throughout the night. She states that she feels back to normal. Electrolyte abnormalities including hypercalcemia and hypophosphatemia were noted and are currently being worked up. Her echocardiogram indicated a structurally normal heart. Objective: Vital Signs Temp Pulse Resp BP Pulse Ox 36.8 C 71 16 109/65 95 09/19/17 07:34 09/19/17 07:34 09/19/17 07:34 09/19/17 07:34 09/19/17 07:34 Laboratory Results 09/19/17 03:36 09/19/17 03:36 09/18/17 09/19/17 09/20/17 05:59 05:59 05:59 Intake Total 650 Output Total 1900 Balance -1250 Physical Exam - Physical Exam General Appearance: WD/WN, alert, no apparent distress EENT: PERRL/EOMI, normal ENT inspection, pharynx normal, TMs normal Neck: non-tender, full range of motion, supple, normal inspection Respiratory: chest non-tender, lungs clear, normal breath sounds Cardiac/Chest: normal peripheral pulses, regular rate, rhythm Peripheral Pulses: 2+: carotid (R), carotid (L), femoral (R), femoral (L), dorsalis-pedis (R), dorsalis-pedis (L) Abdomen: normal bowel sounds, non-tender, soft Pelvic Exam: deferred Rectal: deferred Back: Normal inspection Skin: normal color, warm/dry Lymphatic: no adenopathy Extremities: normal range of motion, non-tender, normal inspection, normal capillary refill Neuro/Psych: no motor/sensory deficits, alert, normal mood/affect, oriented x 3 ICD10 Worksheet Patient Problems: Problems Problem Status Onset Atrial fibrillation Acute
[2017-09-19] MEDS ORDERED: M PROGEST ACET PO SCH (09:00)
[2017-09-19] MEDS ORDERED: ESTROGEN CON PO SCH (09:00)
[2017-09-19] MEDS ORDERED: predniSONE 20 MG TAB PO SCH (09:00)
--- NOTE | 2017-09-19 09:18 | CPEKG ---
Heart Rate: 59 RR Interval: 1017 P-R Interval: 140 QRSD Interval: 74 QT Interval: 404 QTC Interval: 401 P [place]: 53 QRS [place]: 15 T Wave [place]: 52 EKG Severity - BORDERLINE ECG - EKG Impression: SINUS RHYTHM EKG Impression: LOW VOLTAGE THROUGHOUT Electronically Signed By: Ab Hernadez 19-Sep-2017 11:11:28
--- NOTE | 2017-09-19 14:55 | GDS ---
[f rep st] DISCHARGE SUMMARY DISCHARGE DIAGNOSES: 1. Atrial fibrillation, paroxysmal. 2. Supraventricular tachycardia. 3. Cervical spine stenosis. 4. Leukocytosis. 5. Hypophosphatemia and hypercalcemia. HISTORY: Laura is a 62-year-old female with a history of very infrequent SVT over 30 years. Agnes britty she can abort it with Valsalva, but did not work on the day of admission. She presented to the e mergency room and was found to be in rapid AFib. She has since spontaneously converted. She was see n here in consultation by Cardiology. They are recommending diltiazem extended release 120 mg p.o. d aily. They also recommend outpatient consultation with Electrophysiology to consider ablation for SV T, which is thought to be the culprit in initiating her AFib. The patient feels confident that this episode occurred due to her initiating steroids. She would lik e to discontinue the steroids for her cervical spinal stenosis. She would like to discontinue the st eroids and avoid anything further at this time. Her CHADS2-VASc score is 1 and so long-term anticoag ulation is not recommended. Incidentally noted during this hospitalization is leukocytosis, for which she does not appear to have any signs of infection, as well as a phosphorus of 1.9 and a calcium of 10.7. The laboratory studie s did improve overnight. At discharge, her calcium is normal, and her phosphorus as well after being repleted with IV phosphorus. Her parathyroid hormone is 43.9, her TSH is 0.5. Recommendation is fo r repeat laboratory studies in 2 weeks and further followup if these changes persist. DISCHARGE MEDICATIONS: Please see computer record for full detailed list. NEW MEDICATION: Cardizem CD 120 mg p.o. daily. DISCONTINUED MEDICATION: Prednisone 60 mg p.o. daily. ADDITIONAL DISCHARGE INSTRUCTIONS: 1. Recheck CBC, calcium, and phosphorus level in 2 weeks. 2. Follow up with Dr. Vaca of Electrophysiology. The patient was seen and examined by me on the day of discharge. /[id number]/MODL
== END 2017-09-19 11:22 | disposition home or self-care (01) ==
LOC: F2W 12:35
PROVIDERS: ADMIT Internal Medicine; ATTEND Internal Medicine
DX: I48.0 Paroxysmal atrial fibrillation (principal); I47.1 Supraventricular tachycardia; T38.0X5A Adverse effect of glucocorticoids and synthetic analogues, initial encounter; M48.02 Spinal stenosis, cervical region; D72.829 Elevated white blood cell count, unspecified; E83.39 Other disorders of phosphorus metabolism; E83.52 Hypercalcemia; Z88.2 Allergy status to sulfonamides
CPT/HCPCS: 71046; 93005; 93306; 96374; 99285; G0378

== ENCOUNTER 2018-05-20 10:34 | Observation (INO) | payer OTHER | END 2018-05-21 12:19 | disposition home or self-care (01) | LOC: FCATH 10:34 → F2W 15:06 ==

== ENCOUNTER 2018-06-25 02:29 | Emergency (ER) | payer OTHER ==
[2018-06-25] MEDS ORDERED: METOPROLOL TARTRATE 5 MG/5 ML INJ IVP ONE (02:46)
--- NOTE | 2018-06-25 02:49 | EDPHY ---
H & P Stated Complaint: SVT, ablation 1 month ago, palpitations Time Seen by Provider: 06/25/18 02:46 HPI/ROS: Chief Complaint: SVT HPI: 62-year-old woman with a history SVT status post cardiac ablation 1 month ago has been having episodes of palpitations and tachycardia for the last couple of hours. Patient states that she goes in and out of it every 2 min. She states that approximately 2 weeks after her ablation she began having episodes of SVT. She is scheduled to have another ablation next month. No chest pain. No lightheadedness or fainting. No nausea or vomiting. No recent illness. She is not currently taking any medications. ROS: 10 systems were reviewed and were negative except those elements noted in the HPI. PMH: Denies Social History: No smoking, no alcohol, no recreational drug use Family History: non-contributory Physical Exam: Gen: Awake, Alert, No Distress HEENT: Nose: no rhinorrhea Eyes: PERRLA, EOMI Mouth: Moist mucosa Neck: Supple, no JVD Chest: nontender, lungs clear to auscultation Heart: S1, S2 normal, no murmur Abd: Soft, non-tender, no guarding Back: no CVA tenderness, no midline tenderness Ext: no edema, non-tender Skin: no rash Neuro: CN II-XII intact, Sensation grossly intact, Strength 5/5 in bilateral upper and lower extremities - Personal History Current Tetanus/Diphtheria Vaccine: Yes Current Tetanus Diphtheria and Acellular Pertussis (TDAP): Yes - Medical/Surgical History Hx Asthma: No Hx Chronic Respiratory Disease: No Hx Diabetes: No Hx Cardiac Disease: Yes Hx Renal Disease: No Hx Cirrhosis: No Hx Alcoholism: No Hx HIV/AIDS: No Hx Splenectomy or Spleen Trauma: No Other PMH: SVT, c-sec x3, Afib 09/18/2017, TIA 03/2018 - Social History Smoking Status: Never smoked Constitutional: Initial Vital Signs Temperature (C) 36.8 C 06/25/18 02:32 Heart Rate 128 H 06/25/18 02:32 Respiratory Rate 18 06/25/18 02:32 Blood Pressure 162/105 H 06/25/18 02:32 O2 Sat (%) 96 06/25/18 02:32 O2 Delivery Mode Room Air Allergies/Adverse Reactions: Sulfa (Sulfonamide Antibiotics) Allergy (Verified 06/25/18 02:31) RASH AND JAW "LOCKS UP" Home Medications: Medication Instructions Recorded Aspirin [Aspirin 81mg (*)] 81 mg PO DAILY 05/13/18 Diclofenac Sodium [Diclozor] 06/25/18 Metoprolol Succinate [Toprol Xl] 25 mg PO DAILY #30 tab.er.24h 06/25/18 Medical Decision Making - Diagnostics EKG Interpretation: ECG time 2:39 a.m., no complex tachycardia with a rate of 169, ST depression which is likely rate related. ED Course/Re-evaluation: 62-year-old woman with a history of SVT status post failed ablation is presenting with intermittent tachycardia. I have watched her go in and out of it during my evaluation. Plan will be to treat her with a dose of IV metoprolol and re-evaluate. 5 mg IV metoprolol ordered. Patient has had no further tachycardia after the IV metoprolol. Vital signs are normal. She is resting comfortably. 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 - Data Points Medications Given: Discontinued Medications Metoprolol Tartrate (Lopressor Injection) 5 mg IVP EDNOW ONE Stop: 06/25/18 02:47 Last Admin: 06/25/18 02:49 Dose: 5 mg Departure - Departure Disposition: Home, Routine, Self-Care Clinical Impression: Supraventricular tachycardia Condition: Good Instructions: Supraventricular Tachycardia (ED) Additional Instructions: Follow up with line haul truck driver in 1-2 days for further evaluation. Return to the emergency department for increasing palpitations, chest pain, shortness of breath, fainting, or any other concerns. Referrals: Kourtney Brown MD [Primary Care Provider] - As per Instructions Jayce Vaca MD [Medical Doctor] - As per Instructions Prescriptions: Metoprolol Succinate [Toprol Xl] 25 mg PO DAILY #30 tab.er.24h
[2018-06-25 03:04] VITALS: BP 127/84
--- NOTE | 2018-06-27 13:38 | CPEKG ---
Test Reason : OPEN Blood Pressure : / mmHG Vent. Rate : 169 BPM Atrial Rate : 000 BPM P-R Int : 000 ms QRS Dur : 077 ms QT Int : 277 ms P-R-T Axes : 000 -17 057 degrees QTc Int : 465 ms Supraventricular tachycardia Borderline left axis deviation Low voltage, extremity leads Repolarization abnormality, prob rate related Confirmed by Beryl Griffin ([id number]) on 06/27/2018 1:37:38 PM Referred By: Dread Choi Confirmed By:Beryl Griffin
== END 2018-06-25 03:51 | disposition home or self-care (01) ==
DX: I47.1 Supraventricular tachycardia (principal); Z86.73 Personal history of transient ischemic attack (TIA), and cerebral infarction without residual deficits
CPT/HCPCS: 96374

== ENCOUNTER 2018-07-22 06:50 | Observation (INO) | payer OTHER ==
[2018-07-22] MEDS ORDERED: NS 1,000 ML IV ONE (06:52)
[2018-07-22 07:28] LABS: PLATELET COUNT 228 10^3/uL (150-400)
[2018-07-22 07:45] LABS: INR 0.94 (0.83-1.16); PROTIME(PATIENT) 12.2 SEC (12.0-15.0)
[2018-07-22] MEDS ORDERED: MIDAZOLAM 2 MG/2 ML VIAL IVP ONE (07:49)
--- NOTE | 2018-07-22 07:50 | PDANEPAE ---
ANE Past Medical History - Pulmonary History Hx Oxygen in Use at Home: No Hx Sleep Apnea: No - Endocrine History Hx Diabetes: No - Chronic Pain History Chronic Pain: No ANE Review of Systems Review of Systems: ANE Patient History - Allergies Allergies/Adverse Reactions: Sulfa (Sulfonamide Antibiotics) Allergy (Verified 06/25/18 02:31) RASH AND JAW "LOCKS UP" - Home Medications Home Medications: Aspirin [Aspirin 81mg (*)] 81 mg PO DAILY 05/13/18 [Last Taken Unknown] Diclofenac Sodium [Voltaren 75 MG (*)] 75 mg PO DAILY 07/01/18 [Last Taken Unknown] Herbals/Supplements -Info Only 1 ea PO DAILY 07/01/18 [Last Taken Unknown] Metoprolol Succinate Xr [Toprol Xl 25 mg (*)] 25 mg PO BID 07/01/18 [Last Taken Unknown] - Smoking Hx Smoking Status: Never smoked ANE Labs/Vital Signs - Labs Result Diagrams: 07/22/18 06:50 07/22/18 06:50 ANE Physical Exam - Airway Neck exam: FROM Mallampati Score: Class 1 - Pulmonary Pulmonary: no respiratory distress - Cardiovascular Cardiovascular: regular rate and rhythym - ASA Status ASA Status: I ANE Anesthesia Plan Anesthesia Plan: general endotracheal anesthesia
--- NOTE | 2018-07-22 08:14 | PDGENHP ---
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
[2018-07-22] MEDS ORDERED: HEPARIN 10,000 UNIT/10 ML MDV (1,000 UNIT/ML) ONE (08:24)
[2018-07-22] MEDS ORDERED: ISOPROTERENOL HCL/D5W 0.2 MG/50 ML BAG IV ONE (08:24)
[2018-07-22] MEDS ORDERED: LIDOCAINE 1% 300 MG/30 ML SDV ONE (08:24)
[2018-07-22] MEDS ORDERED: BUPIVACAINE 0.5% 30 ML SDV ONE (08:24)
[2018-07-22] MEDS ORDERED: MIDAZOLAM 2 MG/2 ML VIAL ONE (08:29)
[2018-07-22] MEDS ORDERED: fentaNYL 100 MCG/2 ML INJ ONE (08:29)
[2018-07-22] MEDS ORDERED: PROPOFOL/EMULSION 500 MG/50 ML BOTTLE IV ONE (08:29)
[2018-07-22] MEDS ORDERED: ROCURONIUM 50 MG/5 ML VIAL ONE (08:31)
[2018-07-22] MEDS ORDERED: DEXAMETHASONE 4 MG/ML VIAL ONE (08:31)
[2018-07-22] MEDS ORDERED: ONDANSETRON 4 MG/2 ML VIAL ONE (08:31)
[2018-07-22] MEDS ORDERED: PHENYLEPHRINE HCL 100 MCG/ML SYR ONE (08:31)
[2018-07-22] MEDS ORDERED: DESFLURANE 240 ML BOTTLE IH ONE (08:56)
[2018-07-22] MEDS ORDERED: ePHEDrine SULFATE 25 MG/5 ML SYR ONE (09:22)
[2018-07-22] MEDS ORDERED: NEOSTIGMINE METHYLSULFATE 10 MG/10 ML MDV ONE (10:39)
[2018-07-22] MEDS ORDERED: GLYCOPYRROLATE 0.2 MG/1 ML VIAL ONE ×2 (10:40)
--- NOTE | 2018-07-22 10:43 | CPEKG ---
Test Reason : OPEN Blood Pressure : / mmHG Vent. Rate : 080 BPM Atrial Rate : 056 BPM P-R Int : 149 ms QRS Dur : 073 ms QT Int : 414 ms P-R-T Axes : 073 023 045 degrees QTc Int : 478 ms Sinus rhythm Low voltage, extremity and precordial leads Confirmed by Enmanuel Izquierdo ([id number]) on 07/22/2018 10:43:07 AM Referred By: Jayce Vaca Confirmed By:Enmanuel Izquierdo
--- NOTE | 2018-07-22 11:06 | EPPROC ---
Electrophysiology Procedure Note: ELECTROPHYSIOLOGIC STUDY AND CATHETER MEDIATED ABLATION OF SLOW/FAST AV HUA REENTRY TACHYCARDIA PROCEDURES PERFORMED: 79939-85 EP evaluation with RA/RV/LA pace/record, with arrhythmia induction 01121-13 EP evaluation with RA/RV pace record, insert/reposition catheter, with arrhythmia induction 79748 Intracardiac catheter ablation, SVT arrhythmogenic focus 71398 3D mapping Fluoroscopy INDICATION: SVT Prior ablation at our institution PROCEDURE: Catheters & Anesthesia: The patient arrived in the Electrophysiology Laboratory in the fasting state. The right clavicular region, right groin, and left groin area were prepped and draped in the usual sterile manner. Anesthesiologist Dr. Andrew Cade administered general anesthesia. Appropriate non-invasive blood pressure, pulse oximetry and end-tidal CO2 monitoring was established. All catheters were placed percutaneously using the modified Seldinger technique , and advanced into position under fluoroscopic guidance. One #6 Cameroonian hexapolar non-deflectable electrode catheter was inserted into the right atrial appendage via the left femoral vein (2mm spacing; except the proximal ring which was 25cm from the tip used for unipolar recordings). One #7 Cameroonian deflectable octapolar electrode catheter was advanced to the His-bundle position via the left femoral vein (2mm spacing). One #7 Cameroonian deflectable quadrapolar catheter was advanced to the anteroseptal right ventricle via the right femoral vein. One #7 Cameroonian deflectable catheter with 10 pairs of electrodes was placed via the right femoral vein into the coronary sinus. Heparin was given to keep ACT > 200 s. Programmed stimulation was performed from the right atrium, right ventricle and coronary sinus (left atrium). Parahisian pacing demonstrated constant H-A interval with changing V-A intervals and stimulus-A intervals during capture and loss of capture of proximal RBB proving retrograde conduction over AV node. AVNRT was induced easily at baseline. Ventricular extrastimuli delivered during tachycardia without altering antegrade His bundle activation did not advance next atrial potential, indicating that the tachycardia was not utilizing an accessory pathway for retrograde conduction. VA interval was 5 ms. Post entrainment of the tachycardia from the ventricle, there was VAHV response. Mapping of the right atrium and coronary sinus during AVNRT identified earliest atrial activation above the tendon of Martínez at a level slightly posterior to the level of the His bundle, consistent with retrograde conduction over the fast AV hua pathway. A #8 Cameroonian deflectable quadrapolar electrode catheter (2mm-5mm-2mm spacing) with 4 mm tip electrode and sensor for the 3D mapping Carto system was advanced to the right atrium. 3 D mapping of the inter-atrial septum and coronary sinus was performed and location of the AV node was marked. A Mobi sheath was used. RF applications were delivered to the region between the tricuspid annulus and the coronary sinus ostium, at the level of the upper edge of the coronary sinus ostium. Radiofrequency applications were also delivered along the roof of the proximal coronary sinus. Junctional rhythm occurred during all of the RF applications. Programmed stimulation was continued post ablation at baseline and during graded doses of isoproterenol upto 4mcg/min. Sustained AVNRT was not inducible. There were no echo beats. The catheters were removed. Sheaths were removed in the EP lab after applying subcutaneous purse string suture. The patient was transferred to the cardiovascular holding area in stable condition. There were no apparent complications. Results: A. Spontaneous Intervals: Pre ablation SCL 650 ms AH 65 ms HV 40 ms Post ablation SCL 610 ms AH 65 ms HV 40 ms B. Antegrade AV hua function (decremental pacing) Pre ablation FPERP 420 ms SPERP 410 ms then SVT Post ablation FPERP 360 ms WBB CL 350 ms C. Retrograde AV hua function (decremental pacing) Pre ablation FPERP 400 ms WBB CL 390 ms D. Arrhythmias: Sustained slow/fast AVNRT Cycle length 400 ms, AH interval 310 ms, DOWNEY interval 70 ms VA interval 30 ms CONCLUSIONS 1. 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 ( Slow/fast AVNRT). 2. Successful ablation of the slow AV hua pathway with elimination of 1:1 antegrade conduction over the slow AV hua pathway, all retrograde conduction over the slow AV hua pathway and the inducibility of AVNRT. 3. No complications. Patient Problems: Problems Problem Status Onset AVNRT (AV hua re-entry tachycardia) Acute Atrial fibrillation Acute
[2018-07-22] MEDS ORDERED: ALBUTEROL 3 ML DEYVIAL IH PRN (11:44)
[2018-07-22] MEDS ORDERED: ACETAMINOPHEN 500 MG TAB PO PRN (11:44)
[2018-07-22] MEDS ORDERED: NALOXONE HCL 0.4 MG/ML INJ IVP PRN (11:44)
[2018-07-22] MEDS ORDERED: fentaNYL 100 MCG/2 ML INJ IVP PRN (11:44)
[2018-07-22] MEDS ORDERED: ONDANSETRON 4 MG/2 ML VIAL IVP PRN (11:44)
--- NOTE | 2018-07-22 11:44 | POSTANESTH ---
Post Anesthetic Evaluation Cardiovascular Status: Similar to Pre-Op Cond Respiratory Status: Similar to Pre-op Cond. Level of Consciousness/Mental Status: Mildly Sleepy, Arousable Pain Control: Adequate, Prn Tx Ordered Nausea/Vomiting Control: Adequate, Prn Tx Ordered Complications Possibly Related to Anesthesia: None Noted
[2018-07-23 04:36] VITALS: BP 99/57
[2018-07-23 04:58] LABS: PLATELET COUNT 199 10^3/uL (150-400)
--- NOTE | 2018-07-23 07:12 | CPEKG ---
Test Reason : OPEN Blood Pressure : / mmHG Vent. Rate : 074 BPM Atrial Rate : 075 BPM P-R Int : 134 ms QRS Dur : 072 ms QT Int : 415 ms P-R-T Axes : 036 015 009 degrees QTc Int : 461 ms Sinus rhythm Low voltage, extremity and precordial leads Abnormal R-wave progression, early transition Confirmed by Enmanuel Izquierdo ([id number]) on 07/23/2018 7:12:04 AM Referred By: Jayce Vaca Confirmed By:Enmanuel Izquierdo
[2018-07-23] MEDS ORDERED: ASPIRIN 81 MG CHEWABLE TAB PO SCH (09:00)
--- NOTE | 2018-07-23 10:07 | ASDISCHSUM ---
Discharge Information Plan Status:Home with No Needs Medically Cleared to Leave:07/23/2018 Discharge Date:07/23/2018 CM D/C Disposition:Home, Routine, Self-Care ADT D/C Disposition:Home, Routine, Self-Care Projected Discharge Date:07/23/2018 Transportation at D/C: Discharge Delay Reason: Follow-Up Date:07/23/2018 Discharge Slot: Final Diagnosis: Placement Information Patient Contact Information Contact Name:IZZY Relationship:Mother Address: Work Phone: City: [facility] Phone: State/Zip Code: Email: Financial Information Financial Class:[employer] [facility] Primary Plan Number:[id number] Secondary Plan Desc: Secondary Plan Number: Assessment Information LACE LACE Length of stay for Answers: Less than 1 day current admission Acuity / Level of Answers: No Care: Did the patient have an inpatient admission? Comorbidities - select Answers: Cerebrovascular disease all that apply (CVA, TIA, aneurysms, vasc ular dementia) Other Notes: AFib # of Emergency department Answers: 1-2 visits in the last 6 months Score: 3 Date Signed: 07/23/2018 10:05 AM Electronically Signed By:Xiomara Huerta RN Intervention Information
--- NOTE | 2018-07-23 16:40 | CPEKG ---
Test Reason : OPEN Blood Pressure : / mmHG Vent. Rate : 052 BPM Atrial Rate : 052 BPM P-R Int : 145 ms QRS Dur : 083 ms QT Int : 434 ms P-R-T Axes : 070 022 038 degrees QTc Int : 404 ms Sinus rhythm Abnormal R-wave progression, early transition Confirmed by Enmanuel Izquierdo ([id number]) on 07/23/2018 4:40:11 PM Referred By: Jayce Vaca Confirmed By:Enmanuel Izquierdo
--- NOTE | 2018-07-23 16:53 | ECHO ---
[email or web address] [address] Main: [phone] Echocardiography Examination Transthoracic Name: EDIE SHOEMAKER MR#: [id number] Study Date: 07/23/2018 Study Time: 07:48 AM Date of : 1955 Age: 63 year(s) Height: 167.6 cm (66 in.) Weight: 60.78 kg (134 lb.) BSA: 1.69 m2 Gender: Female Examination: Echo Contrast: Image Quality: Adequate Rhythm: Heart Rate: BP: 99 mmHg/57 mmHg Indication: F/U post EP study Procedure Staff Referring Physician: Freight Caller: Smiley Morel RANDOLPH Reading Physician: Ino Chau MD Requesting Provider: Ordering Physician: Jayce Vaca MD Indication: F/U post EP study Measurements Chambers AV/MV Label Value Normal Value Label Value Normal Value LVDd, 2D 4 cm (3.9cm - 5.3cm) AV PGmean 3 mmHg IVSd, 2D 0.5 cm (0.6cm - 1.1cm) AV Vmax 1.32 m/s LVPWd, 2D 0.7 cm MV E Vmax 0.95 m/s LA Volume, BP 42 ml (22ml - 52ml) MV A Vmax 0.65 m/s LADs, 2D 3.1 cm (2.7cm - 3.8cm) MV E/A 1.46 LAESV index, BP 24.9 ml/m2 MV E/E' lateral 7.7 Additional Vessels MV E/E' septal 10 (0.45 - 1.25) Label Value Normal Value MV E' septal 0.1 m/s AoRoot, MM 2.6 cm (2.2cm - 3.7cm) MV E' lateral 0.12 m/s MV E/E' mean 8.64 MV E' mean 0.11 m/s TV/PV Label Value Normal Value RA Pressure 5 mmHg RVSP 24 mmHg TR Pmax 19 mmHg TR Vmax 2.16 m/s Patient: EDIE SHOEMAKER Study Date: 07/23/2018 Page 1 of 3 07:48 AM Conclusions Left Ventricle: Left ventricle is normal in size. EF range is estimated at 65 % - 70 %. There are no regional wall motion abnormalities. Mitral Valve: Trivial mitral regurgitation. Tricuspid Valve: Mild tricuspid regurgitation. Right Ventricular systolic pressure is measured at 24 mmHg. Pericardium: No pericardial effusion. Overall Conclusions: Compared to echo of 05/21/2018, today's echo is unchanged. Findings Left Ventricle: Left ventricle is normal in size. Normal global systolic left ventricular function. EF range is estimated at 65 % - 70 %. Left ventricle wall thickness is normal. There are no regional wall motion abnormalities. Left ventricular diastolic function parameters are normal. IVS: The septum is intact. Right Ventricle: Normal size right ventricle. Right ventricular systolic function is normal. Left Atrium: The left atrium is normal in size. IAS: Normal appearing atrial septum. Right Atrium: The right atrium is normal in size. Mitral Valve: Mitral valve appears structurally normal. Trivial mitral regurgitation. No mitral valve stenosis. Aortic Valve: Aortic leaflets exhibit normal cuspal separation. No aortic valve regurgitation. There is no aortic stenosis. The aortic valve is trileaflet. Tricuspid Valve: Tricuspid valve leaflets are normal in appearance and function. Mild tricuspid regurgitation. No tricuspid valve stenosis. Right Ventricular systolic pressure is measured at 24 mmHg. Pulmonary artery pressure normal. Pulmonic Valve: Pulmonic valve is poorly visualized. Pulmonic leaflets exhibit normal cuspal separation. No pulmonic valve regurgitation is evident. There is no pulmonic valve stenosis. Aorta: The aorta is normal. The aortic root size in M-mode measures 2.6 cm. Aorta Measurements AoRoot, MM is 2.6 cm. Pulmonary Artery: The pulmonary artery morphology appears normal. IVC: The inferior vena cava is normal in size and course. Pericardium: Patient: EDIE SHOEMAKER Study Date: 07/23/2018 Page 2 of 3 07:48 AM No pericardial effusion. No pleural effusion present. Exam Details Procedure Ordered: Echo Procedure Status: Routine study Image Quality: Adequate Facility Location: Cardiac Echo 1 (No Signature Object) Patient: EDIE SHOEMAKER Study Date: 07/23/2018 Page 3 of 3 07:48 AM [id number]
== END 2018-07-23 10:44 | disposition home or self-care (01) ==
LOC: FCATH 06:50 → F2W 10:48
PROVIDERS: ADMIT Internal Medicine Cardiovascular Disease; ATTEND Internal Medicine Cardiovascular Disease
DX: I47.1 Supraventricular tachycardia (principal)
CPT/HCPCS: 93005; 93306; 93613; 93621; 93623; 93653; C1730; C1732; G0378; C1731; C1766; J1100; J1644; J2250; J2370; J2405; J2704; J3010